=== PATIENT | female | born 1965 | race Caucasian/White ===

== ENCOUNTER → 2020-12-15 07:24 | Outpatient (CLI) | payer OTHER, SELFPAY ==
--- NOTE | ~2020-12-15 | XR_ITS ---
XR cervical spine 4-5V DATE: 12/15/2020 08:05 INDICATION: Neck and upper back pain TECHNIQUE: Standing AP, open-mouth, odontoid, lateral, swimmer's and bilateral oblique views COMPARISON: None FINDINGS: There is dextroscoliosis of the cervical spine mild straightening. C1 and C2 are normally aligned and the odontoid process is intact. There is minimal anterolisthesis at C4-5. No fracture or dislocation or locked facet or prevertebral soft tissue swelling. There is moderately severe degenerative disc disease at C5-6 and C6-7. There is uncovertebral joint s purring at C5-6 and C6-7 encroaching prominently upon the C6 and C7 neural foramina bilaterally. IMPRESSION: Minimal anterolisthesis at C4-5 Moderately severe degenerative disc disease and prominent uncovertebral joint spurring at C5-6 and C6 -7, with encroachment upon the C6 and C7 neural foramina bilaterally Reviewed, dictated and finalized at location B. IMPRESSION: Minimal anterolisthesis at C4-5 Moderately severe degenerative disc disease and prominent uncovertebral joint s purring at C5-6 and C6-7, with encroachment upon the C6 and C7 neural foramina bilaterally
--- NOTE | ~2020-12-15 | XR_ITS ---
XR scoliosis survey DATE: 12/15/2020 08:04 INDICATION: Scoliosis TECHNIQUE: Standing AP and lateral views with breast arcos COMPARISON: None FINDINGS: There is 20 degrees levoscoliosis measured from T2 to T9. 6 degrees dextroscoliosis measured from L1 to L5. Diffuse osteopenia. Prominent degenerative disc disease at C6-7. No fracture or dislocation or bone destruction of the thoracic and lumbar spine is evident. The thora cic and lumbar pedicles are intact. No thoracic paraspinal soft tissue thickening is evident. No spon dylolisthesis. Mild degenerative disc disease at L2-3, moderate degenerative disc disease at L3-4, L4-5. IMPRESSION: 20 degrees levoscoliosis from T2 to T9 6 degrees dextroscoliosis from L1 to L5 Reviewed, dictated and finalized at Location A. Reviewed, dictated and finalized at location B.
== END ==
PROVIDERS: PCP Family Medicine; Visit Provider Chiropractor
DX: M50.322 Other cervical disc degeneration at C5-C6 level (principal); M54.6 Pain in thoracic spine; M41.86 Other forms of scoliosis, lumbar region; M41.84 Other forms of scoliosis, thoracic region; M43.12 Spondylolisthesis, cervical region; M50.323 Other cervical disc degeneration at C6-C7 level; M99.61 Osseous and subluxation stenosis of intervertebral foramina of cervical region
CPT/HCPCS: 72050; 72082

== ENCOUNTER 2021-02-23 13:46 | Outpatient (CLI) | payer OTHER, SELFPAY ==
--- NOTE | ~2021-02-23 | MM_ITS ---
EXAMINATION: MM screening luci BI w kelly HISTORY: Screening mammogram TECHNIQUE: Craniocaudal and mediolateral oblique 3-D tomosynthesis images were obtained and synthetic 2-D images were generated. CAD analysis was submitted and interpreted. COMPARISON: 05/30/2017, 09/08/2015 bilateral digital screening mammogram examinations BREAST PARENCHYMAL COMPOSITION: The breasts are heterogeneously dense, which may obscure small masses . FINDINGS: There is no evidence of suspicious mass, calcification, or architectural distortion to sugg est malignancy in either breast. There has been no suspicious interval change. IMPRESSION: 1. No mammographic evidence of malignancy. 2. Recommend routine screening mammography in one year. BI-RADS Category 1: Negative Reviewed, dictated and finalized at location A.
--- NOTE | ~2021-02-23 | DEXA_ITS ---
Bone Density Report Name: Jessy Hall Age: 55 Sex: Female Ethnicity: White Date of : 1965 Indication: postmenopausal; Referring Provider: Talya Oneil Study: Bone densitometry was performed. Exam Date: February 23, 2021 Accession number: [id number] Bone Density: Region BMD T-score Z-score Classification AP Spine (L1-L4) 0.967 -0.7 0.2 Normal Femoral Neck (Left) 0.595 -2.3 -1.3 Osteopenia Total Hip (Left) 0.754 -1.5 -0.9 Osteopenia Total Hip Bilateral Avg 0.746 -1.6 -1.0 Osteopenia Femoral Neck (Right) 0.599 -2.3 -1.3 Osteopenia Total Hip (Right) 0.736 -1.7 -1.1 Osteopenia World Health Organization criteria for BMD impression classify patients as: Normal (T-score at or above -1.0), Osteopenia (T-score between -1.0 and -2.5), or Osteoporosis (T-score at or below -2.5). 10-year Fracture Risk(1): Major Osteoporotic Fracture 7.4% Hip Fracture 1.1% Reported Risk Factors: [place] (), Neck BMD=0.599, BMI=29.4 (1) FRAX(R) Version 3.08. Fracture probability calculated for an untreated patient. Fracture probability may be lower if the patient has received treatment. Clinical Information Provided by Patient: Patient maximum height was 67 Menopause Age: 52 Drinks caffeinated beverages Onset of menses at age 16 Number of children 0 Impression: The patient has low bone mass, based on the Left Femoral Neck T-score. The patient has an estimated ten-year risk of hip fracture of 1.1% and an estimated ten-year risk of major fracture of 7.4%, based on the WHO FRAX algorithm. Discussion: BONE DENSITY IS LOW AT ONE OR MORE SKELETAL SITES. This patient's lowest T-score is low at one or more skeletal sites. It meets the World Health Organization's (WHO) criteria for ?low bone mass? (T-score between -1.0 and -2.5). The patient's 10-year risk of fracture as calculated by FRAX is less than the threshold where pharmacological therapy is recommended by the National Osteoporosis Foundation (NOF). However, all treatment decisions require clinical judgment and consideration of individual patient factors, including patient preferences, comorbidities, previous drug use, risk factors not captured in the FRAX model (e.g., frailty, falls, vitamin D deficiency, increased bone turnover, interval significant decline in bone density) and possible under or overestimation of fracture risk by FRAX. The patient should follow a healthful lifestyle (good nutrition with adequate calcium and vitamin D, and appropriate weight-bearing exercise). Follow-Up: Consider repeating this study in 2 to 3 years to reassess this patient's status, or sooner if there is some new clinical indication. Reported by: BONI on 02/23/2021 2:24:00 PM. Reviewed, dictated and finalized at location A.
== END 2021-02-23 13:47 | disposition home or self-care (01) ==
PROVIDERS: PCP Family Medicine; Visit Provider Advanced Practice Midwife
DX: Z12.31 Encounter for screening mammogram for malignant neoplasm of breast (principal); M81.0 Age-related osteoporosis without current pathological fracture; M85.852 Other specified disorders of bone density and structure, left thigh; M85.851 Other specified disorders of bone density and structure, right thigh
CPT/HCPCS: 77063; 77067; 77080

== ENCOUNTER 2022-08-07 15:47 | Outpatient (CLI) | payer OTHER, SELFPAY ==
--- NOTE | ~2022-08-07 | MM_ITS ---
EXAMINATION: MM screening luci BI w kelly HISTORY: Screening mammogram TECHNIQUE: Craniocaudal and mediolateral oblique 3-D tomosynthesis images were obtained and synthetic 2-D images were generated. CAD analysis was submitted and interpreted. COMPARISON: 02/23/2021, 07/30/2016, 09/08/2015 bilateral digital screening mammogram examinations BREAST PARENCHYMAL COMPOSITION: The breasts are heterogeneously dense, which may obscure small masses . FINDINGS: There is no evidence of suspicious mass, calcification, or architectural distortion to sugg est malignancy in either breast. There has been no suspicious interval change. IMPRESSION: 1. No mammographic evidence of malignancy. 2. Recommend routine screening mammography in one year. BI-RADS Category 1: Negative Reviewed, dictated and finalized at location A. CLEANING COUNTER CLERK
== END 2022-08-07 15:48 | disposition home or self-care (01) ==
PROVIDERS: PCP Family Medicine; Visit Provider Nurse Practitioner Obstetrics & Gynecology
DX: Z12.31 Encounter for screening mammogram for malignant neoplasm of breast (principal)
CPT/HCPCS: 77063; 77067

== ENCOUNTER 2023-09-23 15:03 | Outpatient (CLI) | payer OTHER, SELFPAY ==
--- NOTE | ~2023-09-23 | MM_ITS ---
EXAMINATION: MM screening luci BI w kelly HISTORY: Screening TECHNIQUE: Craniocaudal and mediolateral oblique 3-D tomosynthesis images were obtained and synthetic 2-D images were generated. CAD analysis was submitted and interpreted. COMPARISON: Comparison to multiple prior studies sequentially, with oldest reviewed study dated 09/08. BREAST PARENCHYMAL COMPOSITION: Dense: The breasts are extremely dense, which lowers the sensitivity of mammography. FINDINGS: There is no evidence of suspicious mass, calcification, or architectural distortion to sugg est malignancy in either breast. There has been no suspicious interval change. IMPRESSION: 1. No mammographic evidence of malignancy. 2. Recommend routine screening mammography in one year. BI-RADS Category 1: Negative Reviewed, dictated and finalized at location A. PRODUCTION ASSOCIATE
== END 2023-09-23 15:04 | disposition home or self-care (01) ==
LOC: ANHIMG 15:06
PROVIDERS: PCP Family Medicine; Visit Provider Nurse Practitioner Obstetrics & Gynecology
DX: Z12.31 Encounter for screening mammogram for malignant neoplasm of breast (principal)
CPT/HCPCS: 77063; 77067